=== PATIENT | female | born 1950 | race Caucasian/White ===

== ENCOUNTER 2018-03-30 05:35 | Day surgery (SDC) | payer OTHER ==
[~2018-03-30 05:35] MED LIST: ZOCOR40 MG PO
[2018-03-30] MEDS ORDERED: NAPROXEN375 M1 PO (09:45)
[2018-03-30] MEDS ORDERED: ZITHROMAX500 MG PO (09:46)
== END 2018-03-30 13:40 | disposition home or self-care (01) ==
LOC: CIR.AMB 05:35
DX: N84.0 Polyp of corpus uteri (principal)